=== PATIENT | female | born 1965 | race Caucasian/White ===

== ENCOUNTER 2017-07-28 03:27 | Emergency (ER) | payer BC ==
[2017-07-28 04:26] LABS: #Basophils 0.1 thou/uL (0.0-0.2); #Eosinphils 0.4 thou/uL (0.0-0.7); #Lymphocytes 1.4 thou/uL (1.20-3.40); #Monocytes 0.6 thou/uL (0.11-0.59); #Neutrophils 5.1 thou/uL (1.40-6.50); %Basophils 0.8 % (0.0-1.0); %Eosinophils 5.8 % (0.0-10.0); %Lymphocytes 18.7 % (21.0-51.0); %Monocytes 8.2 % (0.0-10.0); %Neutrophils 66.4 % (42.0-75.0); Hemoglobin 13.5 g/dL (12.0-16.0); Mean Corpuscular HGB CONC 34.2 g/dL (32.0-36.0); Mean Corpuscular Hemoglobin 30.7 pg (27.0-31.0); Mean Corpuscular Volume 89.6 fl (81.0-99.0); Mean Platelet Volume 6.8 fL (7.4-10.4); Platelet Count 224 thou/uL (130-400); Red Blood Cell (RBC) Count 4.38 mill/uL (4.20-5.40); White Blood Cell (WBC) Count 7.7 thou/uL (4.8-10.8)
[2017-07-28] MEDS ORDERED: Fentanyl 100 MCG/2 ML VIAL ONE ×2 (04:30→05:35)
[2017-07-28] MEDS ORDERED: Pantoprazole 40 MG VIAL ONE (04:30)
[2017-07-28] MEDS ORDERED: Ondansetron HCl/PF 4 MG/2 ML Vial ONE (04:30)
[2017-07-28 04:48] LABS: ALT (SGPT) 18 U/L (8-55); AST (SGOT) 16 U/L (5-34); Albumin 4.1 g/dL (3.5-5.0); Alkaline Phosphatase 62 U/L (40-150); Anion Gap 11 mmol/L (10-20); BUN (Urea Nitrogen) 15 mg/dL (9.8-20.1); Bilirubin, Total 0.4 mg/dL (0.2-1.2); CK (CPK) 50 U/L (29-168); Calc. Creatinine Clearance 0 mL/min (70-130); Calcium 9.4 mg/dL (7.8-10.44); Carbon Dioxide 24 mmol/L (22-29); Chloride 106 mmol/L (98-107); Estimated GFR-MDRD 78; Globulin 2.6 g/dL (2.4-3.5); Glucose 96 mg/dL (70-105); Lipase 30 U/L (8-78); Potassium 3.7 mmol/L (3.5-5.1); Protein, Total 6.7 g/dL (6.0-8.3); Sodium 137 mmol/L (136-145)
[2017-07-28 04:51] LABS: Troponin I Less than 0.010 ng/mL (< 0.028)
[2017-07-28] MEDS ORDERED: Acetaminophen 500 MG TAB ONE (05:35)
[2017-07-28] MEDS ORDERED: Ketorolac Tromethamine 30 MG/ML VIAL ONE (05:56)
[2017-07-28] MEDS ORDERED: Mag-Al 1200 mg/1200 mg/30 ML UDCUP ONE (06:01)
[2017-07-28] MEDS ORDERED: Lidocaine Viscous Sol 2% 15 ml UD Cup ONE (06:01)
--- NOTE | 2017-07-28 08:26 | RAD ---
PORTABLE CHEST 1 VIEW: DATE: 07/28/17. TIME: 4:04 a.m. HISTORY: Nausea and vomiting, abdominal pain. FINDINGS: The heart size is normal. The aorta is tortuous. A left-sided AICD is present. The lungs are expan ded without focal areas of consolidation, pneumothorax, or pleural effusions. IMPRESSION: No acute process. POS: OFF
--- NOTE | 2017-07-28 09:26 | CT ---
PRELIMINARY REPORT/[facility]/EMERGENTY AFTER-HOURS PROCEDURE CT Abdomen and Pelvis With Intravenous Contrast CLINICAL HISTORY: 51 years old, female; Pain; Abdominal pain; Generalized; Patient HX: History provided by patient, add itional history obtained from ems, f51 presents to the ed via ems with C/O abdominal pain, x2 weeks. She reports the pain has gotten increasing worse. She reports n/v and loss of appetite. 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 She states the pain is located to her luq that radiated into her l shoulder. She denies any rec ent accident, injuries, or falls. She reports she has an appointment with pcp today but her pain is s o bad she couldn't wait. HX. ; Additional info: Surgical history of hysterectomy. TECHNIQUE: Axial computed tomography images of the abdomen and pelvis with intravenous contrast. Coronal reforma tted images were created and reviewed. CONTRAST: 100 mL of ISOVUE administered intravenously. COMPARISON: No relevant prior studies available. FINDINGS: Lung bases: Enlarged heart with pacemaker. ABDOMEN: Liver: Normal. Gallbladder and bile ducts: Unremarkable. Pancreas: Normal. Spleen: Normal. Adrenals: Normal. Kidneys and ureters: Normal. Stomach and bowel: Mild apparent thickening along the gastric body to antrum. Floppy cecum. Moderate amount of colonic stool. No focal inflammatory changes or evidence of obstruction. Appendix: No findings to suggest acute appendicitis. PELVIS: Bladder: Unremarkable. Reproductive: Hysterectomy. ABDOMEN and PELVIS: Intraperitoneal space: Small amount of fluid in the pelvis. No free air. Bones/joints: Unremarkable. No acute fracture. Soft tissues: Unremarkable. Vasculature: Unremarkable. Lymph nodes: Unremarkable. No enlarged lymph nodes. IMPRESSION: 1. No acute findings. 2. Mild apparent wall thickening along the stomach may represent gastritis or partial distention. Thank you for allowing us to participate in the care of your patient. Dictated and Authenticated by: Kevin Otero MD 07/28/2017 5:55 AM Central Time ([place] & [place]) EMERGENT AFTER HOURS CT ABDOMEN AND PELVIS WITH IV CONTRAST Date: 07-28-17 History: Abdominal pain for two weeks. Pain has gotten increasingly worse. Patient also reports nause a and vomiting and loss of appetite. Comparison: None available. IMPRESSION: 1. Cardiomegaly. 2. Nonvisualization of the appendix, but there are no secondary CT findings to suggest appendicitis. 3. Small amount of free fluid in the pelvis. 4. Brady of the stomach do appear mildly thickened, but this may be related to incomplete distention as opposed to gastritis. 5. No additional acute findings are seen in the abdomen or pelvis. 6. Findings in agreement with preliminary report by JOSE. POS: [facility]
[2017-07-28] MEDS ORDERED: ISOVUE-370 76%-LOCM 1 ML ONE (14:53)
== END 2017-07-28 07:58 | disposition home or self-care (01) ==
LOC: ERS 03:27
DX: K29.70 Gastritis, unspecified, without bleeding (principal); I48.91 Unspecified atrial fibrillation; I34.1 Nonrheumatic mitral (valve) prolapse; M19.90 Unspecified osteoarthritis, unspecified site; G43.909 Migraine, unspecified, not intractable, without status migrainosus
CPT/HCPCS: 36415; 71045; 74177; 80053; 82550; 82553; 83690; 84484; 85025; 93005; 96361; 96374; 96375; 96376; C9113; J1885; J2405; J3010

== ENCOUNTER 2018-03-07 23:09 | Emergency (ER) | payer BC, OTHER ==
[2018-03-07 23:48] LABS: #Basophils 0.1 thou/uL (0.0-0.2); #Eosinphils 0.4 thou/uL (0.0-0.7); #Monocytes 0.4 thou/uL (0.11-0.59); #Neutrophils 2.7 thou/uL (1.40-6.50); %Basophils 1.4 % (0.0-1.0); %Eosinophils 6.8 % (0.0-10.0); %Lymphocytes 36.3 % (21.0-51.0); %Monocytes 7.7 % (0.0-10.0); %Neutrophils 47.8 % (42.0-75.0); Hemoglobin 13.8 g/dL (12.0-16.0); Mean Corpuscular HGB CONC 33.7 g/dL (32.0-36.0); Mean Corpuscular Hemoglobin 30.8 pg (27.0-31.0); Mean Corpuscular Volume 91.4 fL (78.0-98.0); Mean Platelet Volume 7.1 fL (7.4-10.4); Platelet Count 261 thou/uL (130-400); RBC Distribution Width 11.7 % (11.5-14.5); Red Blood Cell (RBC) Count 4.46 mill/uL (4.20-5.40); White Blood Cell (WBC) Count 5.6 thou/uL (4.8-10.8)
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
[2018-03-08 00:32] LABS: ALT (SGPT) 17 U/L (8-55); AST (SGOT) 21 U/L (5-34); Albumin 4.1 g/dL (3.5-5.0); Alkaline Phosphatase 53 U/L (40-150); Anion Gap 8 mmol/L (10-20); BUN (Urea Nitrogen) 18 mg/dL (9.8-20.1); Bilirubin, Total 0.6 mg/dL (0.2-1.2); CK (CPK) 77 U/L (29-168); Calc. Creatinine Clearance 0 mL/min (70-130); Calcium 9.3 mg/dL (7.8-10.44); Carbon Dioxide 24 mmol/L (22-29); Chloride 110 mmol/L (98-107); Estimated GFR-MDRD 72; Globulin 2.9 g/dL (2.4-3.5); Glucose 88 mg/dL (70-105); Potassium 3.4 mmol/L (3.5-5.1); Sodium 139 mmol/L (136-145)
[2018-03-08 00:35] LABS: Troponin I 0.212 ng/mL (< 0.028)
[2018-03-08 02:22] LABS: Troponin I 0.337 ng/mL (< 0.028)
== END 2018-03-08 02:55 | disposition home or self-care (01) ==
LOC: ERS 23:09
DX: Z95.810 Presence of automatic (implantable) cardiac defibrillator (principal); I48.91 Unspecified atrial fibrillation; I34.1 Nonrheumatic mitral (valve) prolapse; G43.909 Migraine, unspecified, not intractable, without status migrainosus; Z79.899 Other long term (current) drug therapy
CPT/HCPCS: 36415; 71045; 80053; 82553; 83880; 84484; 85025; 93005

== ENCOUNTER 2018-04-14 10:24 | Outpatient (CLI) | payer BC, OTHER ==
--- NOTE | 2018-04-14 12:56 | CT ---
LIMITED CTA CHEST WITH AND WITHOUT IV CONTRAST AND 3D POSTPROCESSING: HISTORY: Atrial fibrillation. Preoperative evaluation for possible ablation. FINDINGS: Please see cardiac and coronary findings on report by certified legal secretary specialist. No pleural or pericardial effusions are seen. There are tiny parafissural nodules on the left. Mild dependent changes are noted in the lung bases. There is no evidence of aneurysmal dilatation of the thoracic aorta. POS: [facility]
== END 2018-04-14 10:25 | disposition home or self-care (01) ==
LOC: CT 10:24
PROVIDERS: ATTEND Internal Medicine Cardiovascular Disease
DX: Z01.818 Encounter for other preprocedural examination (principal); I48.91 Unspecified atrial fibrillation; R06.02 Shortness of breath
CPT/HCPCS: 71275; 82565; 84520

== ENCOUNTER 2018-05-12 09:33 | Observation (INO) | payer BC, OTHER ==
[2018-05-12 10:33] LABS: #Basophils 0.1 thou/uL (0.0-0.2); #Eosinphils 0.4 thou/uL (0.0-0.7); #Lymphocytes 1.9 thou/uL (1.20-3.40); #Monocytes 0.7 thou/uL (0.11-0.59); #Neutrophils 4.9 thou/uL (1.40-6.50); %Eosinophils 4.8 % (0.0-10.0); %Lymphocytes 23.7 % (21.0-51.0); %Monocytes 8.4 % (0.0-10.0); %Neutrophils 62.1 % (42.0-75.0); Mean Corpuscular HGB CONC 33.2 g/dL (32.0-36.0); Mean Corpuscular Volume 90.5 fL (78.0-98.0); Mean Platelet Volume 7.7 fL (7.4-10.4); Platelet Count 244 thou/uL (130-400); RBC Distribution Width 11.7 % (11.5-14.5); Red Blood Cell (RBC) Count 4.66 mill/uL (4.20-5.40)
[2018-05-12] MEDS ORDERED: Lidocaine 1% (PF) 30 ML VIAL ONE (10:34)
[2018-05-12 10:41] LABS: INR-International Normal Ratio 1.2; PTT 40.4 SEC (22.9-36.1); Prothrombin Time 15.3 SEC (12.0-14.7)
[2018-05-12 10:51] LABS: Anion Gap 11 mmol/L (10-20); BUN (Urea Nitrogen) 15 mg/dL (9.8-20.1); Calc. Creatinine Clearance 66 mL/min (70-130); Calcium 9.8 mg/dL (7.8-10.44); Carbon Dioxide 26 mmol/L (22-29); Chloride 109 mmol/L (98-107); Estimated GFR-MDRD 71; Glucose 88 mg/dL (70-105); Potassium 3.8 mmol/L (3.5-5.1); Sodium 142 mmol/L (136-145)
[2018-05-12] MEDS ORDERED: Heparin 10,000 UNITS/1 ML VIAL ONE ×2 (10:59→11:55)
[2018-05-12] MEDS ORDERED: Fentanyl 100 MCG/2 ML VIAL ONE ×3 (11:00→17:38)
[2018-05-12] MEDS ORDERED: Protamine Sulfate 50 MG/5 ML VIAL ONE (11:55)
[2018-05-12] MEDS ORDERED: Isoproterenol 0.2 MG/1 ML AMP ONE (11:56)
[2018-05-12] MEDS ORDERED: ePHEDrine/0.9% NaCl/PF SYRINGE 50 mg/10 ml ONE (13:21)
[2018-05-12] MEDS ORDERED: Rocuronium Bromide 10 MG/ML (10ML VIAL) ONE (13:21)
[2018-05-12] MEDS ORDERED: PROPOFOL 200 MG/20 ML VIAL ONE (13:21)
[2018-05-12] MEDS ORDERED: Heparin 10,000 UNITS/ 10 ML VIAL ONE (13:21)
[2018-05-12] MEDS ORDERED: Acetaminophen/Codeine 30-300mg Tablet PO PRN (14:15)
[2018-05-12] MEDS: Sucralfate 1 GM TAB PO SCH ×2 (20:32)
[2018-05-12] MEDS: Apixaban 5 MG TAB PO SCH (20:32)
[2018-05-12] MEDS: Topiramate 25 MG TAB PO SCH (20:33)
[2018-05-12] MEDS: Acetaminophen/Codeine 30-300mg Tablet PO PRN (20:33)
[2018-05-12 20:42] VITALS: BMI 19.3
[2018-05-13] MEDS: Ondansetron ODT 4 MG TAB SL PRN ×3 (00:03→13:51)
[2018-05-13] MEDS: Acetaminophen/Codeine 30-300mg Tablet PO PRN ×2 (03:58→08:30)
[2018-05-13] MEDS: Apixaban 5 MG TAB PO SCH (08:25)
[2018-05-13] MEDS: Topiramate 25 MG TAB PO SCH (08:26)
[2018-05-13] MEDS: Sucralfate 1 GM TAB PO SCH ×3 (08:31→15:43)
[2018-05-13] MEDS ORDERED: Digoxin 0.25 MG TAB PO SCH (09:00)
[2018-05-13] MEDS ORDERED: Losartan 25 MG TAB PO SCH (09:00)
[2018-05-13] MEDS ORDERED: Carvedilol 6.25 MG TAB PO SCH (09:00)
--- NOTE | 2018-05-13 10:42 | OP ---
DATE OF PROCEDURE: 05/12/2018 PROCEDURE: Ablation for atrial fibrillation. PREOPERATIVE DIAGNOSIS: Atrial fibrillation. DESCRIPTION OF PROCEDURE: The patient came to the EP lab in the postabsorptive state. Informed consent was obtained. A time-out was called. The patient was sedated by member of the anesthesia staff. Once the patient was adequately sedated, the left and right femoral regions were prepped and draped in the usual sterile fashion. Using a modified Seldinger technique and with ultrasound-guided access, access was obtained x2 in the right femoral vein, x1 in the left femoral vein. Access was also in the internal jugular vein. A 7 Jamaican sheath was placed in the internal jugular vein. Two 8-Jamaican sheaths were placed in the right femoral vein and a 10 Jamaican sheath was placed in the left femoral vein. A Duo-Deca 20 pole catheter was advanced from the right internal jugular vein and placed with a distal 10 poles into the coronary sinus for left atrial pacing and recording. An intracardiac echo catheter was advanced from the left femoral vein, placed in the right atrium for procedural monitoring and imaging. Transseptal puncture was obtained x2 after giving a bolus of heparin from the right femoral vein using LA multipurpose and a SL0 sheath. A 3-dimensional geometry was made using the Carto system over the left atrium. 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 Although the patient had prior ablation, all of the pulmonary veins were not isolated and the right superior pulmonary vein appeared to be slightly stenotic. Radiofrequency ablation was delivered around the pulmonary veins and the posterior wall, the target watt is approximately 40 kennedy, watching for esophageal position and temperature resulting in isolation of the pulmonary veins. A total of 24 of minutes of radiofrequency was delivered after this. Isoproterenol bolus with no evidence of any atrial arrhythmias or triggers. The catheters were removed, sheaths were removed and hemostasis was obtained with manual pressure as well as with placement of Vascade devices. The patient tolerated the procedure well and was discharged from the EP lab in stable condition. COMPLICATIONS: None acute. ESTIMATED BLOOD LOSS: Less than 30 mL. PROCEDURES PERFORMED: 1. Atrial fibrillation ablation. 2. 3D electroanatomical mapping. 3. Transseptal puncture. 4. Intracardiac echo. 5. LA pacing recording. 6. LV pacing recording. 7. Drug infusion. CONCLUSIONS: 1. No evidence of accessory pathway with LV pacing. 2. Normal conduction with H-V interval less than 60. 3. Successful isolation of pulmonary veins and ablation of the posterior wall. 4. Isoproterenol challenge. RECOMMENDATIONS: The patient will be at bed rest for continued anticoagulant therapy and followup with Dr. Ortega in approximately 6 weeks. Job ID: [id number]
[2018-05-13] MEDS ORDERED: Sodium Chloride 0.9% 1,000 ML IV SCH (12:45)
[2018-05-13] MEDS ORDERED: Ibuprofen 200 MG TAB PO PRN (12:45)
[2018-05-13] MEDS ORDERED: Ketorolac Tromethamine 30 MG/ML VIAL IVP PRN (13:45)
[2018-05-13] MEDS ORDERED: Ketorolac Tromethamine 30 MG/ML VIAL ONE (13:48)
[2018-05-13 15:40] VITALS: BP 98/53; TEMP 98.3
--- NOTE | 2018-05-13 20:58 | EKG ---
Test Reason : PREOP Blood Pressure : / mmHG Vent. Rate : 088 BPM Atrial Rate : 088 BPM P-R Int : 104 ms QRS Dur : 116 ms QT Int : 360 ms P-R-T Axes : 000 080 -68 degrees QTc Int : 435 ms Electronic atrial pacemaker .Occasionl V-pacing. Abnormal ECG When compared with ECG of 07-MAR-2018 23:22, No significant change was found Confirmed by Gloria NASH ([id number]) on 05/13/2018 8:58:24 PM Referred By: ALICJA Confirmed By:Gloria NASH
--- NOTE | 2018-05-13 21:05 | EKG ---
Test Reason : POST ABLATION Blood Pressure : / mmHG Vent. Rate : 085 BPM Atrial Rate : 084 BPM P-R Int : 212 ms QRS Dur : 122 ms QT Int : 384 ms P-R-T Axes : -71 087 -84 degrees QTc Int : 456 ms Electronic atrial pacemaker Cannot rule out Inferior infarct , age undetermined Abnormal ECG When compared with ECG of 12-MAY-2018 10:59, (Unconfirmed) Inverted T waves have replaced nonspecific T wave abnormality in Lateral leads Confirmed by Gloria NASH ([id number]) on 05/13/2018 9:05:07 PM Referred By: ALICJA Confirmed By:Gloria NASH
--- NOTE | 2018-05-13 21:15 | EKG ---
Test Reason : Blood Pressure : / mmHG Vent. Rate : 085 BPM Atrial Rate : 085 BPM P-R Int : 162 ms QRS Dur : 124 ms QT Int : 348 ms P-R-T Axes : 000 087 -58 degrees QTc Int : 414 ms Electronic atrial pacemaker Cannot rule out Inferior infarct (cited on or before 12-MAY-2018) Abnormal ECG When compared with ECG of 12-MAY-2018 13:33, (Unconfirmed) No significant change was found Confirmed by Gloria NASH ([id number]) on 05/13/2018 9:14:59 PM Referred By: ALICJA Confirmed By:Gloria NASH
--- NOTE | 2018-05-14 15:22 | DIS ---
DATE OF ADMISSION: 05/12/2018 DATE OF DISCHARGE: 05/13/2018 SURGEON: Isaac Cuellar MD DIAGNOSIS: Persistent atrial fibrillation. PROCEDURES PERFORMED: Include 3-dimensional electroanatomical mapping, intracardiac echo, atrial fibrillation ablation, and drug infusion. HISTORY OF PRESENT ILLNESS: Ms. De León is a pleasant 52-year-old woman, known to our practice with a complex cardiac history. In 2002, she had a cardiac resection. She is also known to have ventricular tachycardia arrest during an attempted atrial fibrillation ablation in [place] in the year 2010 with a different electrophysiology group. Since then, she has been medically managed with variable success but had recurrent atrial fibrillation with RVR resulting in an ICD shock. She has transiently been on Multaq which she could not tolerate, and it was decided to re-attempt an atrial fibrillation ablation for long-term management for her arrhythmia issues. At the time of her prior attempted ablation, her ejection fraction was severely reduced at 25% to 30%, which has since improved. She was brought to the EP lab and underwent ablation with Dr. Cuellar on 05/13/2018. There was no evidence of accessory pathway with LV pacing. She had normal conduction with HV intervals less than 60. She underwent successful isolation of the pulmonary veins and ablation of the posterior wall and was noninducible on isoproterenol challenge post ablation. Recommendations for continued anticoagulation therapy and routine followup in 6 weeks. She has done well from the ablation perspective in her overnight observation in recovery. Her vital signs have remained stable and she has maintained sinus rhythm. She denies any shortness of breath. Her only concerns post ablation are she has a sore throat from intubation and has been suffering from a migraine headache since this morning, which is also causing nausea. She was not tolerating p.o. intake very well this morning. She was given some gentle IV fluids as well as IV Toradol and Zofran. This successfully resolved her acute migraine issues and her nausea. She is now tolerating some p.o. intake and feels ready and stable for discharge home. She does have some dull chest pain that is worse with inspiration and also positional increased when she leans forward, which is consistent with inflammatory changes post ablation. SUBJECTIVE: As per HPI, otherwise 8-point review of systems is negative. OBJECTIVE: VITAL SIGNS: Temperature 98.3, pulse 80, blood pressure 100/60, respirations 16, and oxygen is 96% on room air. GENERAL: The patient is alert and oriented. Speech is clear. Affect is appropriate. She is resting comfortably in bed. LUNGS: Clear to auscultation bilaterally without wheezes, crackles, or rhonchi. CARDIAC: Heart rate is regularly regular. There is no pericardial friction rubs, murmurs, or gallops appreciated. There is no concern for cardiac tamponade or effusion by physical exam. ABDOMEN: Soft and nontender without palpable masses. Hepatojugular reflux is negative. EXTREMITIES: Warm and dry to touch without clubbing, cyanosis, or edema. NEUROLOGIC: Grossly intact and nonfocal and she has been ambulating in the sainz. Gait is stable without assistive device. MUSCULOSKELETAL: Bilateral groin sites are stable without hematoma or bleeding complications. Dressings are clean, dry, and intact. DISCHARGE MEDICATIONS: 1. Topiramate 1 tab p.o. b.i.d. 2. Losartan 1 tab p.o. daily. 3. Carvedilol 60 mg p.o. daily. 4. Eliquis 5 mg p.o. b.i.d. Discontinue medications include digoxin. New prescriptions include: 1. Carafate 1 g p.o. q.i.d. x2 weeks. 2. Potassium chloride 20 mEq p.o. p.r.n. only to be taken if taken Lasix. 3. Lasix 40 mg p.o. p.r.n. shortness of breath and swelling in the extremities. 4. Pantoprazole 40 mg p.o. daily x30 days. 5. Ibuprofen 400 mg p.o. b.i.d. p.r.n. post ablation chest discomfort as well as headache. DISCHARGE INSTRUCTIONS: No soaking baths or lifting more than 5 to 10 pounds for 1 week. Follow up with [facility] in 6 weeks or sooner if symptoms dictate. Do not stop or interrupt oral anticoagulation unless otherwise instructed by [facility]. Contact [facility] with any postablation concerns or questions. CONDITION AT DISCHARGE: Stable. Job ID: [id number]
== END 2018-05-13 16:43 | disposition home or self-care (01) ==
LOC: CCL 09:33 → 2SW 12:43
PROVIDERS: ADMIT Specialist; ATTEND Specialist
PROC: 02583ZZ Destruction of Conduction Mechanism, Percutaneous Approach (ICD-10-PCS; principal; 2018-05-12)
PROC: 02K83ZZ Map Conduction Mechanism, Percutaneous Approach (ICD-10-PCS; 2018-05-12)
DX: I48.1 Persistent atrial fibrillation (principal); I48.0 Paroxysmal atrial fibrillation; I42.9 Cardiomyopathy, unspecified; I50.22 Chronic systolic (congestive) heart failure; Z79.01 Long term (current) use of anticoagulants; Z79.899 Other long term (current) drug therapy; Z88.5 Allergy status to narcotic agent; Z88.8 Allergy status to other drugs, medicaments and biological substances; Z91.048 Other nonmedicinal substance allergy status; Z95.810 Presence of automatic (implantable) cardiac defibrillator; Z98.890 Other specified postprocedural states
CPT/HCPCS: 76942; 80048; 85025; 85347; 85610; 85730; 93005; 93010; 93613; 93623; 93656; 93662; 96361; 96374; 96376; C1731; C1759; C1769; G0378; J1644; J1885; J2001; J2704; J2720; J3010; Q0162

== ENCOUNTER 2018-12-30 07:01 | Outpatient (CLI) | payer BC, OTHER ==
[2018-12-30 10:49] LABS: Hemoglobin 13.3 g/dL (12.0-16.0); Mean Corpuscular HGB CONC 34.1 g/dL (32.0-36.0); Mean Corpuscular Hemoglobin 30.8 pg (27.0-31.0); Mean Corpuscular Volume 90.5 fL (78.0-98.0); Mean Platelet Volume 7.6 fL (7.4-10.4); Platelet Count 209 thou/uL (130-400); RBC Distribution Width 11.5 % (11.5-14.5); White Blood Cell (WBC) Count 4.9 thou/uL (4.8-10.8)
[2018-12-30 10:55] LABS: INR-International Normal Ratio 1.4; Prothrombin Time 16.8 SEC (12.0-14.7)
[2018-12-30 10:56] LABS: PTT 41.4 SEC (22.9-36.1)
[2018-12-30 11:07] LABS: Anion Gap 11 mmol/L (10-20); BUN (Urea Nitrogen) 18 mg/dL (9.8-20.1); Calc. Creatinine Clearance 0 mL/min (70-130); Carbon Dioxide 25 mmol/L (22-29); Chloride 109 mmol/L (98-107); Estimated GFR-MDRD 71; Glucose 95 mg/dL (70-105); Potassium 4.2 mmol/L (3.5-5.1); Sodium 141 mmol/L (136-145)
--- NOTE | 2019-01-02 16:43 | EKG ---
Test Reason : Blood Pressure : / mmHG Vent. Rate : 080 BPM Atrial Rate : 080 BPM P-R Int : 184 ms QRS Dur : 114 ms QT Int : 386 ms P-R-T Axes : 092 086 078 degrees QTc Int : 445 ms Electronic atrial pacemaker Non-specific intra-ventricular conduction delay Abnormal ECG Confirmed by AMANDA GEORGE ([id number]) on 01/02/2019 4:42:46 PM Referred By: AZAR Confirmed By:AMANDA GEORGE
== END 2018-12-30 07:02 | disposition home or self-care (01) ==
LOC: LABBT 07:01
PROVIDERS: ATTEND Specialist
DX: Z01.818 Encounter for other preprocedural examination (principal); I48.91 Unspecified atrial fibrillation
CPT/HCPCS: 80048; 85027; 85610; 85730; 93005; 93010

== ENCOUNTER 2019-01-26 08:32 | Outpatient (CLI) | payer BC, OTHER ==
--- NOTE | 2019-01-26 09:20 | CT ---
EXAM: CT of the chest with contrast HISTORY: Dyspnea. Status post cardiac ablation. COMPARISON: None TECHNIQUE: Multiple contiguous axial images were obtained in a CT the chest with contrast. Coronal an d sagittal reformats were performed. FINDINGS: HEART: Normal in size without focal cardiac abnormality. There is a pacemaker with its leads in the r ight atrium and ventricle. MEDIASTINUM: No hilar or mediastinal lymphadenopathy. LUNGS: No focal infiltrates, nodules, or masses. PLEURAL SPACE: No pneumothorax or pleural effusion. CHEST WALL SOFT TISSUES: Unremarkable OSSEOUS STRUCTURES: No acute abnormality. VISUALIZED SUBDIAPHRAGMATIC STRUCTURES: Unremarkable IMPRESSION: No evidence of acute intrathoracic abnormality.
[2019-01-26] MEDS ORDERED: ISOVUE-370 76%-LOCM 1 ML ONE (10:14)
== END 2019-01-26 08:33 | disposition home or self-care (01) ==
LOC: BICCT 08:32
PROVIDERS: ATTEND Internal Medicine Cardiovascular Disease
DX: R06.02 Shortness of breath (principal)
CPT/HCPCS: 71260; Q9966

== ENCOUNTER 2019-03-09 21:40 | Inpatient (IN) | payer BC, OTHER ==
[2019-03-09] MEDS ORDERED: Metoprolol Tartrate 5 MG/5 ML VIAL ONE (21:51)
[2019-03-09 22:13] LABS: #Basophils 0.1 thou/uL (0.0-0.2); #Eosinphils 0.4 thou/uL (0.0-0.7); #Lymphocytes 2.5 thou/uL (1.20-3.40); #Monocytes 0.8 thou/uL (0.11-0.59); #Neutrophils 4.5 thou/uL (1.40-6.50); %Basophils 0.8 % (0.0-1.0); %Eosinophils 4.4 % (0.0-10.0); %Neutrophils 54.8 % (42.0-75.0); Hemoglobin 14.5 g/dL (12.0-16.0); Mean Corpuscular HGB CONC 33.7 g/dL (32.0-36.0); Mean Corpuscular Volume 91.8 fL (78.0-98.0); Mean Platelet Volume 7.7 fL (7.4-10.4); Platelet Count 309 thou/uL (130-400); RBC Distribution Width 12.3 % (11.5-14.5); Red Blood Cell (RBC) Count 4.67 mill/uL (4.20-5.40); White Blood Cell (WBC) Count 8.3 thou/uL (4.8-10.8)
[2019-03-09 22:34] LABS: ALT (SGPT) 110 U/L (8-55); AST (SGOT) 114 U/L (5-34); Albumin 4.4 g/dL (3.5-5.0); Alkaline Phosphatase 130 U/L (40-110); Anion Gap 12 mmol/L (10-20); BUN (Urea Nitrogen) 23 mg/dL (9.8-20.1); Bilirubin, Total 0.4 mg/dL (0.2-1.2); CK (CPK) 42 U/L (29-168); Calc. Creatinine Clearance 0 mL/min (70-130); Calcium 9.3 mg/dL (7.8-10.44); Carbon Dioxide 25 mmol/L (22-29); Chloride 109 mmol/L (98-107); Estimated GFR-MDRD 69; Globulin 2.9 g/dL (2.4-3.5); Glucose 109 mg/dL (70-105); Magnesium 2.2 mg/dL (1.6-2.6); Potassium 3.8 mmol/L (3.5-5.1); Protein, Total 7.3 g/dL (6.0-8.3); Sodium 142 mmol/L (136-145)
--- NOTE | 2019-03-09 22:36 | RAD ---
Chest one view HISTORY: Palpitations. Chest pain. COMPARISON: 01/26/2019. FINDINGS: Cardiac silhouette is magnified by projection. Pulmonary vasculature is unremarkable. Media stinum is midline with a multilead left subclavian cardiac defibrillator. Postoperative changes of the right suprahilar level. Defibrillator patch over the right upper chest. No lobar consolidation or evidence of pneumothorax. Nipple shadow overlies the left base. IMPRESSION: Postoperative changes and other chronic-type findings are stable. No active cardiopulmona ry abnormalities are demonstrated.
[2019-03-09 22:40] LABS: Digoxin 0.36 ng/mL (0.8-2.0)
[2019-03-09] MEDS ORDERED: Aspirin Chewable 81 MG TAB ONE (23:08)
[2019-03-09] MEDS ORDERED: Digoxin 0.5 MG/2 ML AMP ONE (23:08)
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
[2019-03-10 01:42] LABS: Troponin I Less than 0.010 ng/mL (< 0.028)
[2019-03-10] MEDS ORDERED: Ondansetron PF 4 MG/2 ML Vial IVP PRN (02:50)
[2019-03-10] MEDS ORDERED: Ondansetron ODT 4 MG TAB PO PRN (02:50)
[2019-03-10 03:08] VITALS: BMI 19.1
[2019-03-10 05:04] LABS: ALT (SGPT) 78 U/L (8-55); AST (SGOT) 60 U/L (5-34); Albumin 3.6 g/dL (3.5-5.0); Alkaline Phosphatase 97 U/L (40-110); Anion Gap 7 mmol/L (10-20); BUN (Urea Nitrogen) 18 mg/dL (9.8-20.1); Bilirubin, Total 0.4 mg/dL (0.2-1.2); Calc. Creatinine Clearance 80 mL/min (70-130); Calcium 8.6 mg/dL (7.8-10.44); Carbon Dioxide 23 mmol/L (22-29); Chloride 114 mmol/L (98-107); Estimated GFR-MDRD 88; Globulin 2.2 g/dL (2.4-3.5); Glucose 92 mg/dL (70-105); Potassium 3.9 mmol/L (3.5-5.1); Protein, Total 5.8 g/dL (6.0-8.3); Sodium 140 mmol/L (136-145)
[2019-03-10 05:08] LABS: Troponin I Less than 0.010 ng/mL (< 0.028)
[2019-03-10] MEDS: Lactated Ringer's 1,000 ML IV SCH ×2 (06:13→19:02)
[2019-03-10] MEDS ORDERED: Carvedilol 25 MG TAB PO SCH (09:00)
[2019-03-10] MEDS: Topiramate 25 MG TAB PO SCH ×2 (09:49→20:12)
[2019-03-10] MEDS: Digoxin 0.125 MG TAB PO SCH (09:49)
[2019-03-10] MEDS: Famotidine 20 MG TAB PO SCH ×2 (09:49→20:12)
[2019-03-10] MEDS: Apixaban 5 MG TAB PO SCH ×2 (09:49→20:12)
[2019-03-10] MEDS ORDERED: Sotalol HCl 80 MG TAB PO SCH (11:15)
[2019-03-10] MEDS ORDERED: Apixaban 5 MG TAB PO SCH (11:39)
[2019-03-10] MEDS: Acetaminophen 325 MG TAB PO PRN ×2 (19:02→22:56)
[2019-03-10] MEDS: Sotalol HCl 80 MG TAB PO SCH (20:12)
[2019-03-11] MEDS: Lactated Ringer's 1,000 ML IV SCH (03:30)
--- NOTE | 2019-03-11 05:48 | PDOC.FM ---
- Subjective Subjective: Pt is feeling better today. She denies any SOB, chest pain, or cough. She has some minimal abdominal pain. - Objective MAR Reviewed: Yes Vital Signs & Weight: Vital Signs (12 hours) Temp Pulse Resp BP Pulse Ox 03/11/19 03:43 97.4 F L 80 16 118/68 92 L 03/10/19 23:25 98.3 F 80 16 110/64 98 03/10/19 19:50 97.2 F L 79 16 116/69 98 Weight Weight 55.248 kg I&O: 03/09/19 03/10/19 03/11/19 06:59 06:59 06:59 Intake Total 2255 Balance 2255 Result Diagrams: 03/09/19 21:58 03/11/19 06:21 Phys Exam - Physical Examination Constitutional: NAD HEENT: moist MMs Neck: no JVD Respiratory: no wheezing, clear to auscultation bilateral Cardiovascular: no significant murmur Irregularly irregular rhythm Gastrointestinal: soft, no distention, positive bowel sounds mild RUQ pain Musculoskeletal: no edema, pulses present Neurological: moves all 4 limbs Psychiatric: A&O x 3 Dx/Plan (1) Transaminitis Code(s): R74.0 - NONSPEC ELEV OF LEVELS OF TRANSAMNS & LACTIC ACID DEHYDRGNSE Status: Acute (2) Atrial fibrillation, persistent Code(s): I48.1 - PERSISTENT ATRIAL FIBRILLATION * DO NOT USE * Status: Acute - Plan Plan: This is a 53 yo female with a pmh of Afib with an ablation in April and December of this year Afib, now rate controlled -Consulted EP at her city director's recommendation -Will continue to monitor -Pt will need repeat digoxin level before discharge -Continue home Eliquis Transaminitis, resolved -May be related to hemodynamic instability and hypoxia from afib [employer] -Obtaining RUQ US today
[2019-03-11 06:55] LABS: ALT (SGPT) 53 U/L (8-55); AST (SGOT) 34 U/L (5-34); Albumin 3.6 g/dL (3.5-5.0); Alkaline Phosphatase 87 U/L (40-110); Anion Gap 10 mmol/L (10-20); BUN (Urea Nitrogen) 15 mg/dL (9.8-20.1); Bilirubin, Total 0.3 mg/dL (0.2-1.2); Calc. Creatinine Clearance 75 mL/min (70-130); Calcium 8.8 mg/dL (7.8-10.44); Carbon Dioxide 19 mmol/L (22-29); Chloride 114 mmol/L (98-107); Estimated GFR-MDRD 81; Globulin 2.6 g/dL (2.4-3.5); Glucose 89 mg/dL (70-105); Potassium 4.3 mmol/L (3.5-5.1); Protein, Total 6.2 g/dL (6.0-8.3); Sodium 139 mmol/L (136-145)
--- NOTE | 2019-03-11 08:03 | ULT ---
ULTRASOUND ABDOMEN LIMITED: (RIGHT UPPER QUADRANT) DATE: 03/11/2019 HISTORY: 53-year-old female with right upper quadrant abdominal pain and transaminitis. FINDINGS: Gallbladder: Normal wall thickness. No gallstones or sludge identified. No pericholecystic fluid. Tin y 2 x 3 mm polyp. Liver: Normal parenchymal echogenicity. Right kidney: No hydronephrosis. Pancreas: Visualized, with no gross sonographic abnormality identified (although ultrasound is relati vely insensitive for the detection of pancreatic pathology compared to CT and MRI.). Common duct caliber: 2 mm. IMPRESSION: 1. Tiny gallbladder polyp. 2. Otherwise negative.
[2019-03-11] MEDS: Sotalol HCl 80 MG TAB PO SCH ×2 (08:47→20:58)
[2019-03-11] MEDS: Digoxin 0.125 MG TAB PO SCH (08:47)
[2019-03-11] MEDS: Famotidine 20 MG TAB PO SCH ×2 (08:47→20:57)
[2019-03-11] MEDS: Apixaban 5 MG TAB PO SCH ×2 (08:47→20:57)
[2019-03-11] MEDS: Topiramate 25 MG TAB PO SCH ×2 (08:47→20:58)
--- NOTE | 2019-03-11 12:02 | PRG ---
DATE OF SERVICE: 03/11/2019 Please see note from Dr. Montana, for which I agree. The patient is seen, evaluated, discussed, and examined with the residents by bedside. The patient basically had a syncopal spell from atrial fibrillation with rapid ventricular response. Known atrial fibrillation history and has had some ablations etc,. EPS has been involved and since we got her rate controlled and switched over to sotalol, things have been stable. higher dose of digoxin as well, but it sounds like as long as EPS and community development planner are okay with her going home, it sounds like that is the plan as she is stable. 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 Job ID: [id number]
[2019-03-11] MEDS: Acetaminophen 325 MG TAB PO PRN (21:05)
[2019-03-12 04:55] LABS: Hemoglobin 12.6 g/dL (12.0-16.0); Platelet Count 244 thou/uL (130-400)
--- NOTE | 2019-03-12 05:44 | PDOC.FM ---
- Subjective Subjective: Pt denies chest pain, palpitations, or SOB. She reports one episode of chest heaviness overnight that resolved spontaneously. - Objective MAR Reviewed: Yes Vital Signs & Weight: Vital Signs (12 hours) Temp Pulse Resp BP BP Pulse Ox 03/12/19 03:37 97.3 F L 79 16 117/70 95 03/11/19 23:39 98 F 79 16 148/61 H 97 03/11/19 21:12 97 03/11/19 20:58 79 118/75 03/11/19 19:55 98.3 F 79 16 118/75 97 Weight Weight 55.248 kg I&O: 03/10/19 03/11/19 03/12/19 06:59 06:59 06:59 Intake Total 2255 1460 Balance 2255 1460 Result Diagrams: 03/12/19 04:43 03/11/19 06:21 Phys Exam - Physical Examination Constitutional: NAD HEENT: moist MMs Neck: no JVD Respiratory: no wheezing, clear to auscultation bilateral Cardiovascular: no significant murmur Irregularlyly irregular Gastrointestinal: soft, non-tender, no distention, positive bowel sounds Musculoskeletal: no edema, pulses present Neurological: moves all 4 limbs Psychiatric: A&O x 3 Skin: cap refill <2 seconds Dx/Plan (1) Transaminitis Code(s): R74.0 - NONSPEC ELEV OF LEVELS OF TRANSAMNS & LACTIC ACID DEHYDRGNSE Status: Acute (2) Atrial fibrillation, persistent Code(s): I48.1 - PERSISTENT ATRIAL FIBRILLATION * DO NOT USE * Status: Acute - Plan Plan: This is a 53 yo female with a pmh of Afib with an ablation in April and December of this year Afib, now rate controlled -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 Ortega on the and plans to make an appointment with Dr. Bautista when she gets out. 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
[2019-03-12 06:19] LABS: Digoxin 0.65 ng/mL (0.8-2.0)
[2019-03-12] MEDS: Sotalol HCl 80 MG TAB PO SCH (08:49)
[2019-03-12] MEDS: Apixaban 5 MG TAB PO SCH (08:49)
[2019-03-12] MEDS: Topiramate 25 MG TAB PO SCH (08:49)
[2019-03-12] MEDS: Digoxin 0.125 MG TAB PO SCH (08:49)
[2019-03-12] MEDS: Famotidine 20 MG TAB PO SCH (08:49)
--- NOTE | 2019-03-12 11:08 | PRG ---
DATE OF SERVICE: 03/12/2019 Please see note from Dr. Montana, for which I agree. The patient is seen, evaluated, discussed, and examined with the residents by bedside. The patient was kept overnight just for further monitoring after the change of sotalol, etc. But, Dr. Ortega, EPS doctor was fine with us sending her out on current medicines and will get a close followup. She seems perfectly fine and is in regular rate and rhythm, not really showing currently. Job ID: [id number]
[2019-03-12 12:03] VITALS: BP 116/82; TEMP 97.3
--- NOTE | 2019-03-12 15:26 | PDOC.EVN ---
Event Note - Event Note Event Note: Late Entry @ 1230 Reviewed patient EKGs, noted with stable QTc on 12-leads. Spoke c/ patient briefly as she was leaving, encouraged to call Dr. Bautista' office tomorrow for follow-up appt, keep appt with [facility] as scheduled. She denies any complaints or concerns. Was not examined at this time as she was being discharged.
--- NOTE | 2019-03-12 16:22 | EKG ---
Test Reason : Blood Pressure : / mmHG Vent. Rate : 080 BPM Atrial Rate : 468 BPM P-R Int : 216 ms QRS Dur : 116 ms QT Int : 384 ms P-R-T Axes : 086 076 246 degrees QTc Int : 442 ms Atrial-paced rhythm with prolonged AV conduction with appropriate ventricular sensing Low voltage QRS Marked ST abnormality, possible anterior subendocardial injury Abnormal ECG When compared with ECG of 09-MAR-2019 21:58, (Unconfirmed) Non-specific change in ST segment in Inferior leads Confirmed by DR. Karley LOU ([id number]) on 03/12/2019 4:21:36 PM Referred By: SELENA Confirmed By:DR. Karley LOU
--- NOTE | 2019-03-12 16:26 | EKG ---
Test Reason : TIMED FOR 1400 Blood Pressure : / mmHG Vent. Rate : 080 BPM Atrial Rate : 080 BPM P-R Int : 186 ms QRS Dur : 144 ms QT Int : 448 ms P-R-T Axes : 000 -71 131 degrees QTc Int : 516 ms Dual chamber pacemaker with AV pacing Anterior ischemia Confirmed by DR. Karley LOU ([id number]) on 03/12/2019 4:25:30 PM Referred By: BRITNEY Confirmed By:DR. Karley LOU
--- NOTE | 2019-03-12 16:27 | EKG ---
Test Reason : POST MEDICATION Blood Pressure : / mmHG Vent. Rate : 080 BPM Atrial Rate : 080 BPM P-R Int : 208 ms QRS Dur : 114 ms QT Int : 446 ms P-R-T Axes : 000 082 237 degrees QTc Int : 514 ms Electronic atrial pacemaker Low voltage QRS Marked ST abnormality, possible anterior subendocardial injury Prolonged QT Abnormal ECG When compared with ECG of 10-MAR-2019 14:13, (Unconfirmed) Electronic atrial pacemaker has replaced Electronic ventricular pacemaker Confirmed by DR. Karley LOU ([id number]) on 03/12/2019 4:27:20 PM Referred By: Lauren WALTERS Confirmed By:DR. Karley LOU
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
== END 2019-03-12 12:38 | disposition home or self-care (01) | DRG 309 ==
LOC: ERS 21:40 → 2SE 03-10 00:42 → OBSVTOIN 03-10 00:42
PROVIDERS: ADMIT Family Medicine; ATTEND Family Medicine
DX: I48.19 Other persistent atrial fibrillation (principal); I50.22 Chronic systolic (congestive) heart failure; Z95.810 Presence of automatic (implantable) cardiac defibrillator; Z88.8 Allergy status to other drugs, medicaments and biological substances; Z91.048 Other nonmedicinal substance allergy status; Z79.899 Other long term (current) drug therapy; I11.0 Hypertensive heart disease with heart failure; I34.0 Nonrheumatic mitral (valve) insufficiency; I42.8 Other cardiomyopathies
CPT/HCPCS: 36415; 71045; 76705; 80053; 80162; 82550; 83735; 84484; 85014; 85018; 85025; 85049; 93005; 93010; 93306; 94760; 96361; 96374; J1160

== ENCOUNTER 2020-10-09 07:35 | Day surgery (SDC) | payer BC ==
[2020-10-08 11:01] VITALS: BMI 18.4
[2020-10-09 08:35] LABS: Hemoglobin 13.6 g/dL (12.0-16.0); Mean Corpuscular HGB CONC 35.1 g/dL (32.0-36.0); Mean Corpuscular Hemoglobin 32.9 pg (27.0-31.0); Mean Corpuscular Volume 93.6 fL (78.0-98.0); Mean Platelet Volume 7.7 fL (7.4-10.4); Platelet Count 176 thou/uL (130-400); RBC Distribution Width 11.4 % (11.5-14.5); Red Blood Cell (RBC) Count 4.13 mill/uL (4.20-5.40); White Blood Cell (WBC) Count 5.3 thou/uL (4.8-10.8)
[2020-10-09 08:47] LABS: INR-International Normal Ratio 1.2; PTT 37.9 sec (22.9-36.1); Prothrombin Time 14.8 sec (12.0-14.7)
[2020-10-09 08:52] LABS: Anion Gap 12 mmol/L (10-20); BUN (Urea Nitrogen) 15 mg/dL (9.8-20.1); Calc. Creatinine Clearance 68 mL/min (70-130); Carbon Dioxide 24 mmol/L (22-29); Chloride 109 mmol/L (98-107); Glucose 91 mg/dL (70-105); Potassium 3.6 mmol/L (3.5-5.1); Sodium 141 mmol/L (136-145)
== END 2020-10-09 12:32 | disposition home or self-care (01) ==
LOC: CCL 07:35
PROVIDERS: ATTEND Internal Medicine Cardiovascular Disease
DX: I48.0 Paroxysmal atrial fibrillation (principal); I47.1 Supraventricular tachycardia; I50.22 Chronic systolic (congestive) heart failure; I42.8 Other cardiomyopathies; I48.4 Atypical atrial flutter; I08.1 Rheumatic disorders of both mitral and tricuspid valves; Z53.8 Procedure and treatment not carried out for other reasons; Z79.01 Long term (current) use of anticoagulants; Z79.899 Other long term (current) drug therapy; Z88.5 Allergy status to narcotic agent; Z88.6 Allergy status to analgesic agent; Z88.8 Allergy status to other drugs, medicaments and biological substances; Z91.048 Other nonmedicinal substance allergy status; Z95.810 Presence of automatic (implantable) cardiac defibrillator
CPT/HCPCS: 36415; 80048; 85027; 85610; 85730